=== PATIENT | female | born 1990 | race Caucasian/White ===

== ENCOUNTER 2017-07-02 15:21 | Emergency (ER) | payer SELFPAY ==
[~2017-07-02] VITALS: Ht 170.2 cm; Wt 100.0 kg
[2017-07-02 15:30] VITALS: BP 174/112; PULSE 84; RESP 18; TEMP 97.9; O2SAT 99
--- NOTE | 2017-07-04 00:39 | EKG ---
Date Performed: 07/02/2017 Time Performed: 15:40:21 PTAGE: 26 years EKG: Sinus rhythm NORMAL ECG NO PREVIOUS TRACING DOCTOR: Lew Saunders Interpretating Date/Time 07/04/2017 00:37:06
== END 2017-07-02 16:19 | disposition left against medical advice (07) ==
LOC: NETRI 15:21
DX: R07.9 Chest pain, unspecified (principal); I10 Essential (primary) hypertension
CPT/HCPCS: 93005; 99281